=== PATIENT | female | born 1985 | race African-American/Black ===

== ENCOUNTER 2023-05-18 23:47 | Emergency (ER) | payer MEDICAID ==
[~2023-05-18] VITALS: Ht 165.1 cm; Wt 90.9 kg
[~2023-05-18 23:47] MED LIST: FAMO20TA10 PO; LEVO50TA7 PO
[2023-05-19] MEDS ORDERED: IPRATROPIUM BROM 0.5 MG/2.5ML INH SOL NEB ONE (00:45)
[2023-05-19] MEDS ORDERED: IBUPROFEN 800 MG TAB PO ONE (00:45)
[2023-05-19] MEDS ORDERED: DexAMETHasone SOD PHOS 10MG/1ML VIAL INJ IM ONE (00:45)
[2023-05-19] MEDS ORDERED: ALBUTEROL SULF 2.5 MG/0.5ML(0.5%) NEB SOLN NEB ONE (00:45)
[2023-05-19] MEDS ORDERED: guaiFENesin-CODEINE Liq 5 ML UD PO ONE (00:45)
[2023-05-19] MEDS ORDERED: ONDANSETRON ODT 4 MG TAB PO ONE (00:45)
[2023-05-19] MEDS ORDERED: ALBUAER3 IN (01:14)
[2023-05-19] MEDS ORDERED: MONT10TA23 PO (01:14)
[2023-05-19] MEDS ORDERED: AZITTAB PO (01:14)
[2023-05-19] MEDS ORDERED: PRED20TA2 PO (01:14)
[2023-05-19] MEDS ORDERED: GUAI100S6 PO (01:15)
[2023-05-19] MEDS ORDERED: BENZLOZ2 MT (01:15)
[2023-05-19] MEDS ORDERED: GENT0.3S10 EACHEYE (01:15)
[2023-05-19 03:38] VITALS: BP 111/85; PULSE 89; RESP 18; TEMP 98; O2SAT 99
== END 2023-05-19 01:40 | disposition home or self-care (01) ==
LOC: ER 23:47
DX: J45.909 Unspecified asthma, uncomplicated (principal); J02.9 Acute pharyngitis, unspecified; H10.9 Unspecified conjunctivitis; F41.9 Anxiety disorder, unspecified; E78.5 Hyperlipidemia, unspecified; R06.02 Shortness of breath
CPT/HCPCS: 94640; 96372; 99283; J1100; J7644; Q0162

== ENCOUNTER 2025-09-28 19:46 | Emergency (ER) | payer MEDICAID ==
[~2025-09-28] VITALS: Ht 165.1 cm; Wt 93.5 kg
[~2025-09-28 19:46] MED LIST changes: +ALBUAER3 IN; +AZITTAB PO; +BENZLOZ2 MT; +GENT0.3S10 EACHEYE; +GUAI100S6 PO; +MONT10TA23 PO; +PRED20TA2 PO
--- NOTE | 2025-09-28 20:13 | ED.PDOC ---
History of Present Illness HPI Comments 40-year-old female who came to ER for vaginal bleeding. Patient is a , LMP at 07/02/2025. Has been having vaginal bleeding since September 21, initially starting off as spotting, and became profuse the past 2 days, changing pads on an hourly basis, though associated blood clots, abdominal cramping and back pains. Patient unsure if she is REVIEW OF SYSTEMS: General: No fever, no chills, or fatigue HEENT: No sore throat, no earache, no congestion, no neck pain. Cardiac: No chest pain. No palpitations. Lungs: No shortness of breath, no cough. GI: No nausea, no vomiting, no diarrhea, no constipation, (+) abdominal pain : No dysuria, frequency, or urgency. No hematuria. (+) vaginal bleeding Musculoskeletal: No joint pain , no joint swelling, no extremity edema. (+) back pain Skin: No rash, no itching. Neuro: No headache, no dizziness, no weakness EXAM: General: Awake, alert and oriented. No acute distress. Skin: Skin in warm, dry and intact. Appropriate color for ethnicity. HEENT: The head is normocephalic and atraumatic. Conjunctivae are clear without exudates or hemorrhage. Sclera is non-icteric. EOM are intact. No signs of nystagmus. Eyelids are normal in appearance without swelling or lesions. Oral mucosa is pink and moist Neck: The neck is supple with normal range of motion. No JVD. Cardiac: Heart rate and rhythm are normal. No murmurs, gallops, or rubs are auscultated. Respiratory: No signs of respiratory distress. Lung sounds are clear in all lobes bilaterally without rales, rhonchi, or wheezes. Abdominal: Abdomen is soft, non-tender without distention. Bowel sounds are present and normoactive in all four quadrants. Extremities: Upper and lower extremities are atraumatic in appearance without deformity or edema. Neurological: The patient is awake, alert and oriented to person, place, and time with normal speech. Speech is clear. There is no facial asymmetry. Psychiatric: Appropriate mood and affect. Good judgement and insight Chief Complaint: Vaginal Bleed Time Seen by MD: 20:13 Primary Care Provider: UNKNOWN Reviewed Notes: Nurses Notes Allergies: Coded Allergies: NO KNOWN ALLERGIES (Unverified , 10/01/11) Home Meds Active Scripts Benzocaine-Menthol (Mouth-Thro (Cepacol Sore Throat) 1 Harmony Harmony, 1 HARMONY MT Q6HR, #24 HARMONY as needed for sorethroat Prov:PENGJENNIFER Humza MOTOR VEHICLE TECHNICIAN 05/19/23 Gentamicin Sulfate (Gentamicin Sulfate) 0.3 % Priscila, 1 DROP EACHEYE QID for 7 Days, #5 ML Prov:DANISHBRAYDONTay Ching MOTOR VEHICLE TECHNICIAN 05/19/23 Albuterol Sulfate (VENTOLIN MDI) 90 Mcg Ih, 1 PUFF IN Q4HR, #1 INH As needed for cough congestion shortness of breath or wheezing Prov:DANISHBRAYDONTay Ching MOTOR VEHICLE TECHNICIAN 05/19/23 Montelukast Sodium (Singulair) 10 Mg Tab, 1 TAB PO DAILY for 30 Days, #30 TAB Prov:DANISHBRAYDONTay Ching MOTOR VEHICLE TECHNICIAN 05/19/23 Prednisone (Prednisone) 20 Mg Tab, 1 TAB PO BID for 5 Days, #10 MG start tomorrow wiht food Prov:DANISHJENNIFER Humza MOTOR VEHICLE TECHNICIAN 05/19/23 Azithromycin (Zithromax Z-Iain) 250 Mg Tab, 1 TAB PO DAILY for 5 Days, #6 TAB 2 tabs today then 1 tab start tomorrow for 4 days Prov:JENNIFER PENG Humza MOTOR VEHICLE TECHNICIAN 05/19/23 Famotidine (PEPCID TABLET) 20 Mg Tb, 1 TAB PO BID, #60 TAB Prov:DEBBIE DESAI MD 07/05/16 Reported Medications Guaifenesin-Codeine (Robitussin/Codeine) 10 Ml So, 5 ML PO Q6HR, #120 ML as needed for cough 05/19/23 Levothyroxine Sodium (Levothyroxine Sodium) 50 Mcg Tab, 75 MCG PO QAM, MCG 07/04/16 Information Source: Patient Mode of Arrival: Ambulatory Past Medical History PAST MEDICAL HISTORY: Anxiety, Asthma, High Lipids, Thyroid Surgical History: Denies all surgeries 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 Was a procedure done?: No Differential Dx Considerations may include: Anemia, electrolyte imbalance, metromenorrhagia, X-Ray, Labs, Meds, VS Vital Signs Date Time Temp Pulse Resp B/P (MAP) Pulse Ox O2 Delivery O2 Flow Rate FiO2 09/29/25 02:20 98.8 09/29/25 02:00 98.7 88 20 137/84 (101) 99 98.7 09/29/25 01:21 98.9 09/28/25 21:57 98.6 90 22 150/111 (124) 97 98.6 09/28/25 19:47 98.2 85 16 162/105 100 98.2 Lab Test 09/28/25 20:33 09/28/25 20:16 Range/Units White Blood Count 8.7 4.4-10.8 10^3/uL Red Blood Count 4.10 4.0-5.20 10^6/uL Hemoglobin 12.7 12.2-16.2 g/dL Hematocrit 38.4 36.0-46.0 % Mean Corpuscular Volume 93.6 80.0-100.0 fL Mean Corpuscular Hemoglobin 31.0 28.0-32.0 pg Mean Corpuscular Hemoglobin Concent 33.1 32.0-36.0 g/dL Red Cell Distribution Width 12.2 11.8-14.3 % Platelet Count 242 140-450 10^3/uL Mean Platelet Volume 8.7 6.9-10.8 fL Neutrophils (%) (Auto) 55.8 37.0-80.0 % Lymphocytes (%) (Auto) 34.2 10.0-50.0 % Monocytes (%) (Auto) 6.5 0.0-12.0 % Eosinophils (%) (Auto) 3.3 0.0-7.0 % Basophils (%) (Auto) 0.2 0.0-2.0 % Neutrophils # (Auto) 4.9 1.6-8.6 10 ^3/uL Lymphocytes # (Auto) 3.0 0.4-5.4 10 ^3/uL Monocytes # (Auto) 0.6 0-1.3 10 ^3/uL Eosinophils # (Auto) 0.3 0-0.8 10 ^3/uL Basophils # (Auto) 0 0-0.2 10 ^3/uL Nucleated Red Blood Cells 0.2 % Prothrombin Time 11.4 9.3-11.8 sec Prothrombin Time INR 1.08 0.9-1.15 Sodium Level 143 136-145 mmol/L Potassium Level 3.9 3.5-5.1 mmol/L Chloride Level 106 98-107 mmol/L Carbon Dioxide Level 28 20-31 mmol/L Anion Gap 9 5-15 Blood Urea Nitrogen 10 9-23 mg/dL Creatinine 0.72 0.550-1.02 mg/dL Glomerular Filtration Rate Calc 108 >90 mL/min BUN/Creatinine Ratio 13.9 10.0-20.0 Serum Glucose 85 74-106 mg/dL Calcium Level 9.4 8.7-10.4 mg/dL Beta HCG, Quantitative 218.3 H 1.5-4.2 mIU/mL Urine Color Light-yellow Yellow Urine Clarity Clear Clear Urine pH 5.5 5.0-9.0 Urine Specific [place] 1.018 1.001-1.035 Urine Protein Negative Negative Urine Ketones Negative Negative Urine Blood Negative Negative /uL Urine Nitrite Negative Negative Urine Bilirubin Negative Negative Urine Urobilinogen Normal Negative mg/dL Urine Leukocyte Esterase Negative Negative /uL Urine RBC 2 0 - 4 /hpf Urine Microscopic WBC 1 0-5 /HPF Urine Squamous Epithelial Cells Few <5 /hpf Urine Bacteria Few H None Seen /hpf Urine Mucus Few None Seen Urine Glucose Normal Normal mg/dL Urine Test Positive Negative Time of 1ST Reevaluation: 20:08 Reevaluation 1ST: Unchanged Patient Education/Counseling: Need For Follow Up Family Education/Counseling: No Family Present SEPSIS Sepsis Screen Date sepsis recognized/suspect: Sep 28, 2025 Time Sepsis recognized/suspect: 1950 Recent Procedure: No On Antibiotic Therapy: No Respiratory Rate >20: No Heart Rate >90: No Temp<36 C (96.8 F) or >38.3 C: No SBP <90 or MAP <65 mmHG: No New Acute Mental Status Change: No Is the patient on CPAP, BIPAP,: No Physician Orders Ob Ultrasound Comp Less 14wks (09/28/25 20:08) Vital Signs Date Time Temp Pulse Resp B/P (MAP) Pulse Ox O2 Delivery O2 Flow Rate FiO2 09/29/25 02:20 98.8 09/29/25 02:00 98.7 88 20 137/84 (101) 99 98.7 09/29/25 01:21 98.9 09/28/25 21:57 98.6 90 22 150/111 (124) 97 98.6 09/28/25 19:47 98.2 85 16 162/105 100 98.2 Laboratory Tests Test 09/28/25 20:33 White Blood Count 8.7 10^3/uL (4.4-10.8) Departure 1 Departure Time of Disposition: 01:54 Impression: Primary Impression: of unknown anatomic location Disposition: HOME / SELF CARE / HOMELESS Condition: Stable Additional Instructions: ED DISCHARGE INSTRUCTIONS Instructions: Please read all instructions provided in this packet carefully. Although you have been discharged from the Emergency Department, this does not mean that you have a "clean bill of health". No definitive diagnosis for your symptoms has been made today. It is possible that you are in the process of developing a serious illness. This is why you must return to the ED without fail if any new or worsening symptoms (especially if your symptoms include chest pain, trouble breathing, abdominal pain, fever, headache, confusion, trouble seeing, or trouble walking) It is also very important that you see an front desk clerk the next 3 days to follow up. If you are unable to get an appointment, return to the ED for re-evaluation. You will need repeat level, repeat ultrasound to determine location of the or if you are having a miscarriage. What is PUL? of unknown location (PUL) is when you have a positive urine or blood test, and the cannot be seen on ultrasound. When you have a PUL, it must be found. Your care team will decide if it will grow safely. Why we cannot see it on ultrasound? It is too early to see A person is having a miscarriage There is an ectopic What is an ectopic ? It is a that started outside the uterus. This can be life threatening It is never normal You will need close follow up with: Ultrasounds Blood work Visits with your care team Ectopic pregnancies happen most often inside the fallopian tube. It can also be called a tubal . Other places they can be found are: The cervix A scar An ovary The abdomen 2 out of 100 pregnancies will be outside of the uterus (ectopic). The cannot carry on because: They can be life threatening Cannot be a viable Cannot be moved to the uterus When found early, some can be treated with a medicine called methotrexate. You may need a minor surgery to remove the or your fallopian tube. Caring for yourself at home Until the is found, you should: Get pelvic rest (do not douche, use tampons, or have sex). Not take ibuprofen, Motrin, aspirin, or other NSAID medicines Take acetaminophen (Tylenol) as needed. Drink lots of water Take your medicine unless told by your care team Do not wait until the clinic is open. Call right away or go to your emergency room if you have: Heavy vaginal bleeding (soaking through a pad in less than 1 hour) Abdominal pain that is severe or gets worse Lightheadedness or fainting Follow-up Close follow-up is needed for a PUL A blood test. This test is known as a serum beta human chorionic gonadotrophin (HCG). It may be called a qaunt Return to get your second HCG 48 hours after this visit. Your HCG level should go up by about 66% in that time if: the is normal it is growing in your uterus An ultrasound in 3-5 days You need to return to have tests done. Comments 40-year-old female who presented with vaginal bleeding, positive urine and beta hCG. Discussed with the patient differential diagnosis including m iscarriage versus of unknown location. Advised to return to the ED or follow up elsewhere promptly for repeat hCG and imaging. Advised return precautions Critical Care Note Critical Care Time?: No Stability Stability form required: No Heart Score Heart Score: Heart Score Response (Comments) Value History N/A 0 EKG N/A 0 Age N/A 0 Risk Factors N/A 0 Troponin N/A 0 Total 0 I personally scribed for LIAN VILLASEÑOR MD ([email or web address]) on 09/28/25 at 20:13. Electronically submitted by Jayjay Guevara ([email or web address]). LIAN VILLASEÑOR MD Sep 28, 2025 20:13
[2025-09-28 20:50] LABS: Hematocrit 38.4 % (36.0-46.0); Hemoglobin 12.7 g/dL (12.2-16.2); Mean Corpuscular Hemoglobin 31.0 pg (28.0-32.0); Mean Corpuscular Volume 93.6 fL (80.0-100.0); Nucleated Red Blood Cells % 0.2 %
[2025-09-28 21:07] LABS: Chloride 106 mmol/L (98-107); Potassium 3.9 mmol/L (3.5-5.1); Sodium 143 mmol/L (136-145)
[2025-09-28 21:08] LABS: Anion Gap 9 (5-15); Carbon Dioxide 28 mmol/L (20-31)
[2025-09-28 21:09] LABS: Calcium 9.4 mg/dL (8.7-10.4); INR 1.08 (0.9-1.15); Prothrombin Time 11.4 sec (9.3-11.8)
[2025-09-28 21:13] LABS: Glucose 85 mg/dL (74-106)
[2025-09-28 21:14] LABS: BUN/Creatinine Ratio 13.9 (10.0-20.0); Blood Urea Nitrogen 10 mg/dL (9-23)
[2025-09-28 23:48] LABS: Urine Protein, UAD Negative (Negative)
[2025-09-29] MEDS: ACETAMINOPHEN 325 MG TAB PO ONE (01:21)
--- NOTE | 2025-09-29 01:21 | DVH ---
OB ULTRASOUND <14 WEEKS: HISTORY: Heavy vaginal bleeding TECHNIQUE: Multiple real-time grayscale sonographic images of the pelvis with duplex Doppler color flow, spectral and M-mode analysis. TRANSDUCERS: Transabdominal FINDINGS: The uterus measures 14.4 x 4.1 x 5.9. The endometrium measures 3 mm with trace fluid. Right ovary measures 3.3 x 2.6 x 1.9 with normal Doppler color flow Left ovary measures 2.7 x 2.1 x 2.5 with normal Doppler color flow No intrauterine is seen. IMPRESSION: 1. No intrauterine is seen. Findings may reflect early , of unknown location, or failed . Clinical correlation with HCG values and sonographic follow-up is suggested. 2. Nonspecific enlarged appearance of the uterus.
[2025-09-29 02:00] VITALS: BP 137/84; PULSE 88; RESP 20; O2SAT 99
[2025-09-29 02:20] VITALS: TEMP 98.8
== END 2025-09-29 02:36 | disposition home or self-care (01) ==
LOC: ER 19:46
DX: O00.80 Other ectopic pregnancy without intrauterine pregnancy (principal); J45.909 Unspecified asthma, uncomplicated; F41.9 Anxiety disorder, unspecified; E78.5 Hyperlipidemia, unspecified; Z3A.00 Weeks of gestation of pregnancy not specified
CPT/HCPCS: 36415; 76801; 80048; 81001; 81025; 84702; 85025; 85610